=== PATIENT | female | born 1995 | race Caucasian/White ===

== ENCOUNTER 2017-03-07 01:26 | Emergency (ER) | payer BC ==
[~2017-03-07] VITALS: Ht 182.9 cm; Wt 89.5 kg
[2017-03-07 01:27] VITALS: TEMP 98
[2017-03-07] MEDS ORDERED: LEXAPRO20 MG PO (01:32)
[2017-03-07] MEDS ORDERED: RECLIPSEN 0.151 TAB PO (01:32)
[2017-03-07 02:12] LABS: BASO % 0.3 % (0.0-2.0); EOS # 0.1 (0.0-0.7); EOS % 1.5 % (0-4.0); GRAN # 3.7 (1.4-6.5); GRAN % 56.3 % (42.2-75.2); HEMOGLOBIN 12.2 g/dl (12.0-15.0); LYMPH % 30.7 % (20.0-51.0); MEAN CELL VOLUME 84 fl (80.0-95.0); MEAN CORPUSCULAR HEMOGLOBIN 29 pg (26.0-32.0); MEAN CORPUSCULAR HGB CONC 35 g/dl (33.0-37.0); MEAN PLATELET VOLUME 9.3 fl (7.4-10.4); MONO # 0.7 (0.1-0.6); MONO % 10.6 % (1.7-9.3); PLATELET COUNT 253 K/mm3 (130-400); RED BLOOD COUNT 4.18 M/mm3 (4.10-5.30); REDCELL DISTRIBUTION WIDTH-CV 11.9 % (11.5-14.5); WHITE BLOOD COUNT 6.5 K/mm3 (4.8-10.8)
[2017-03-07 02:19] LABS: PH 6 (5-8); SQUAMOUS EPITHELIAL 0-2 /hpf; URINE APPEARANCE Clear; URINE BACTERIA None Seen /hpf; URINE BILIRUBIN Negative (NEGATIVE); URINE BLOOD Negative (NEGATIVE); URINE COLOR Yellow; URINE GLUCOSE Negative (NEGATIVE); URINE KETONE Negative (NEGATIVE); URINE RBC 0-2 /hpf; URINE UROBILINOGEN Negative (NEGATIVE)
[2017-03-07 02:21] LABS: ADJUSTED CALCIUM 9.2 mg/dL (8.4-10.2); ALBUMIN 4.4 gm/dL (3.5-5.0); BILIRUBIN,TOTAL 0.5 mg/dL (0.0-1.0); CALCIUM 9.5 mg/dL (8.4-10.2); CREATININE, serum 0.77 mg/dL (0.52-1.25); POTASSIUM 3.4 mmol/L (3.4-5.0); TOTAL PROTEIN 7.4 gm/dL (6.4-8.2)
[2017-03-07] MEDS ORDERED: NORCO 325 MG-51 TAB PO (03:49)
[2017-03-07] MEDS ORDERED: ZOFRAN ODT4 MG PO (03:49)
[2017-03-07 04:12] VITALS: BP 128/68; PULSE 73
== END 2017-03-07 04:12 | disposition home or self-care (01) ==
LOC: COL.ER 01:26
PROVIDERS: Emergency Medicine
DX: K85.90 Acute pancreatitis without necrosis or infection, unspecified (principal); F32.9 Major depressive disorder, single episode, unspecified; F41.9 Anxiety disorder, unspecified; J45.990 Exercise induced bronchospasm; Z98.890 Other specified postprocedural states
CPT/HCPCS: J1885; J2060; J7030; Q9967